=== PATIENT | female | born 1955 | race Caucasian/White ===

== ENCOUNTER 2018-06-09 08:24 | Outpatient (CLI) | payer BC ==
--- NOTE | 2018-06-09 11:00 | Mammography Report ---
Reason: FOLLOW-UP BENIGN CHANGES RT BREAST Procedure Date: 06/09/2018 Accession Number: [id number] / [id number] Procedure: KATIA - Diagnostic Dig Bilat CPT Code: FULL RESULT: EXAM: Diagnostic Dig Bilat, Breast Unilateral Limited DATE: 06/09/2018 9:38 AM CLINICAL HISTORY: Follow-up abnormal mammogram August 22, 2017 at [facility] TECHNIQUE: Bilateral CC and MLO views were obtained. Real-time ultrasound scanning of the left breast with saved static images reviewed. COMPARISON: August 22, 2017 and January 31, 2017 FINDINGS: MAMMOGRAPHY: The breast tissue is heterogeneously dense. There is been no significant interval change. No suspicious masses, clustered microcalcifications, or regions of architectural distortion are identified. LEFT BREAST ULTRASOUND: In the 12:00 position left breast 1 cm from the nipple there are 2 small adjacent avascular cysts, each measuring maximally 3 mm. No solid mass is seen. IMPRESSION: Benign findings RECOMMENDATION: Routine annual screening unless otherwise clinically indicated. BIRADS CATEGORY 2: Benign findings STANDARD QUALIFYING STATEMENTS: 1. This examination was not reviewed with the aid of Computer-Aided Detection (CAD). 2. A negative or benign imaging report should not delay biopsy if clinically suspicious findings are present. Consider surgical consultation if warrented. More than 5% of cancers are not identified by imaging. 3. Dense breasts may obscure an underlying neoplasm. 4. This examination was reviewed with the aid of 3D breast imaging (tomosynthesis).
== END 2018-06-09 08:25 | disposition home or self-care (01) ==
LOC: DI 08:24
PROVIDERS: ATTEND Family Medicine
DX: N60.12 Diffuse cystic mastopathy of left breast (principal)
CPT/HCPCS: 76642; 77066

== ENCOUNTER 2018-07-10 15:42 | Outpatient (CLI) | payer BC | END 2018-07-10 15:43 | disposition home or self-care (01) | LOC: SC 15:42 | PROVIDERS: ATTEND Nurse Practitioner Family | DX: G47.8 Other sleep disorders (principal); R06.83 Snoring; G47.00 Insomnia, unspecified; R53.83 Other fatigue | CPT/HCPCS: 99204; 99212 ==

== ENCOUNTER 2018-07-30 19:30 | Outpatient (CLI) | payer BC | END 2018-07-30 23:59 | disposition home or self-care (01) | LOC: SC 19:30 | PROVIDERS: ATTEND Internal Medicine Pulmonary Disease | DX: R06.83 Snoring (principal); G47.10 Hypersomnia, unspecified | CPT/HCPCS: 95806 ==

== ENCOUNTER 2018-09-18 10:26 | Outpatient (CLI) | payer BC | END 2018-09-18 10:27 | disposition home or self-care (01) | LOC: SC 10:26 | PROVIDERS: ATTEND Internal Medicine Pulmonary Disease | DX: R06.83 Snoring (principal) | CPT/HCPCS: 99212; 99213 ==